=== PATIENT | male | born 1965 | race African-American/Black ===

== ENCOUNTER 2019-11-27 19:41 | Inpatient (IN) | payer OTHER ==
[~2019-11-27] VITALS: Ht 182.9 cm; Wt 105.5 kg
[2019-11-27] MEDS ORDERED: PANTOPRAZOLE 40 MG/10 ML VIAL INJ IV STA (19:47)
[2019-11-27] MEDS ORDERED: SODIUM CHLORIDE 0.9% 1,000 ML IVB ONE (19:47)
[2019-11-27] MEDS ORDERED: KETOROLAC TROMETH 15 mg/ml 1ML VL IV ONE (20:00)
[2019-11-27] MEDS ORDERED: ONDANSETRON HCL 4 MG/2 ML VIAL IV ONE (20:00)
[2019-11-27] MEDS ORDERED: MORPHINE SULFATE 10 MG/ML INJ 1ML SDV IV ONE (20:30)
[2019-11-27] MEDS ORDERED: LABETALOL HCL 5 MG/ML 4ML SYRINGE IV ONE ×2 (21:00→22:30)
[2019-11-27 21:15] LABS: Albumin 3.5 g/dL (3.4-5.0); Calcium 9.7 mg/dL (8.5-10.1)
[2019-11-27] MEDS ORDERED: ALUM & MAG HYDROX-SIMETH LIQ(MAALOX) 30 ML PO ONE (21:15)
[2019-11-27 21:18] LABS: Lactic Acid w/Reflex 3.4 mmol/L (0.4-2.0)
[2019-11-27 21:19] LABS: BUN/Creatinine Ratio 9.4; Bilirubin, Total 0.5 mg/dL (0.2-1.0); Total Protein 9.1 g/dL (6.4-8.2)
[2019-11-27 21:23] LABS: Potassium 2.5 mmol/L (3.5-5.1)
[2019-11-27] MEDS ORDERED: POTASSIUM CHL 20 Meq TABLET PO ONE (21:30)
[2019-11-27] MEDS ORDERED: HYDROmorphone HCL 2 MG/ML VL IV ONE (22:00)
[2019-11-27 22:05] LABS: Basophils # (auto) 0.1 10 ^3/uL (0-0.2); Hemoglobin 17.2 g/dL (13.5-17.5)
[2019-11-27 22:07] LABS: Basophils % (auto) 0.4 % (0.0-2.0); Eosinophils # (auto) 0 10 ^3/uL (0-0.8); Eosinophils % (auto) 0.2 % (0.0-7.0); Hematocrit 49.9 % (41.0-53.0); Lymphocytes % (auto) 4.7 % (10.0-50.0); Mean Corpuscular Hemoglobin 28.8 pg (28.0-32.0); Mean Corpuscular Hgb Conc. 34.5 g/dL (32.0-36.0); Mean Corpuscular Volume 83.4 fL (80.0-100.0); Monocytes # (auto) 1.4 10 ^3/uL (0-1.3); Neutrophils % (auto) 87.7 % (37.0-80.0); Nucleated Red Blood Cells % 0.1 %; Platelet Count (auto) 80 10^3/uL (140-450); Red Blood Cells 5.98 10^6/uL (4.5-5.90); Red Cell Distribution Width 19.3 % (11.8-14.3); White Blood Cell 20.5 10^3/uL (4.4-10.8)
[2019-11-27] MEDS ORDERED: SODIUM CHLORIDE 0.9% 2,000 ML IV ONE (22:15)
[2019-11-27] MEDS ORDERED: levoFLOXacin 500MG 100 ML IV ONE (22:15)
[2019-11-27] MEDS ORDERED: PANTOPRAZOLE 40 MG/10 ML VIAL INJ IV SCH (22:30)
[2019-11-27 22:36] LABS: Urine WBC None Seen /hpf (0 - 3)
[2019-11-27] MEDS ORDERED: cloNIDine HCL 0.1 MG TAB PO PRN (22:45)
[2019-11-27] MEDS ORDERED: NITROGLYCERIN 0.4 MG SL TAB SL PRN (22:45)
[2019-11-27] MEDS ORDERED: DOCUSATE SOD 100 MG CAP PO PRN (22:45)
[2019-11-27] MEDS ORDERED: ACETAMINOPHEN 325 MG TAB PO PRN (22:45)
[2019-11-27] MEDS ORDERED: HYDROcodone-ACET 5/325MG TAB PO PRN (22:45)
[2019-11-27] MEDS ORDERED: MORPHINE SULF INJ 2 MG/ML SYRINGE 1ML IV PRN (22:45)
[2019-11-27 22:55] LABS: Urine Bacteria NONE SEEN /hpf (None Seen); Urine Blood 3+ /uL (Negative)
[2019-11-27] MEDS: POTASSIUM CHL 20MEQ/100ML 100 ML IV SCH (22:56)
[2019-11-27 22:57] LABS: Urine Specific Gravity 1.015 (1.001-1.035)
[2019-11-27] MEDS ORDERED: cloNIDine HCL 0.1 MG TAB PO ONE (23:00)
[2019-11-27 23:01] LABS: Amphetamine Screen, Urine NEGATIVE (NEGATIVE); Barbiturate Scree,Urine NEGATIVE (NEGATIVE); Benzodiazephine Screen, Urine NEGATIVE (NEGATIVE); Cannabinoid Screen, Urine NEGATIVE (NEGATIVE); Cocaine Screen, Urine NEGATIVE (NEGATIVE); Opiate Scree,Urine NEGATIVE (NEGATIVE); Phencyclidine Screen, Urine NEGATIVE (NEGATIVE)
[2019-11-27] MEDS: METOPROLOL TARTRATE 50 MG TAB PO SCH (23:20)
[2019-11-27] MEDS: MORPHINE SULFATE 4 MG/ML SYR/VIAL IV PRN (23:39)
[2019-11-27] MEDS: ONDANSETRON HCL 4 MG/2 ML VIAL IV PRN (23:39)
[2019-11-28] MEDS: SODIUM CHLORIDE 0.9% 1,000 ML IV SCH ×3 (00:05→22:00)
[2019-11-28] MEDS: POTASSIUM CHL 20MEQ/100ML 100 ML IV SCH (00:26)
[2019-11-28] MEDS: MORPHINE SULFATE 4 MG/ML SYR/VIAL IV PRN (04:35)
[2019-11-28] MEDS: ONDANSETRON HCL 4 MG/2 ML VIAL IV PRN (04:35)
[2019-11-28] MEDS ORDERED: cloNIDine HCL 0.1 MG TAB PO SCH ×2 (06:00)
[2019-11-28 06:19] LABS: Basophils # (auto) 0.1 10 ^3/uL (0-0.2); Basophils % (auto) 0.5 % (0.0-2.0); Eosinophils # (auto) 0 10 ^3/uL (0-0.8); Hemoglobin 14.9 g/dL (13.5-17.5); Lymphocytes # (auto) 0.8 10 ^3/uL (0.4-5.4); Lymphocytes % (auto) 6.1 % (10.0-50.0); Mean Corpuscular Hemoglobin 28.5 pg (28.0-32.0); Mean Corpuscular Hgb Conc. 33.9 g/dL (32.0-36.0); Mean Corpuscular Volume 84.2 fL (80.0-100.0); Monocytes # (auto) 0.9 10 ^3/uL (0-1.3); Monocytes % (auto) 6.9 % (0.0-12.0); Neutrophils # (auto) 10.8 10 ^3/uL (1.6-8.6); Neutrophils % (auto) 86.5 % (37.0-80.0); Platelet Count (auto) 43 10^3/uL (140-450); Red Blood Cells 5.23 10^6/uL (4.5-5.90); Red Cell Distribution Width 19.3 % (11.8-14.3); White Blood Cell 12.5 10^3/uL (4.4-10.8)
[2019-11-28 06:48] LABS: BUN/Creatinine Ratio 9.7; Calcium 8.2 mg/dL (8.5-10.1); Potassium 3.6 mmol/L (3.5-5.1)
[2019-11-28] MEDS ORDERED: MORPHINE SULF INJ 2 MG/ML SYRINGE 1ML IV PRN (07:00)
[2019-11-28] MEDS ORDERED: hydrALAZINE HCL 20 MG/ML VL IV PRN (09:15)
[2019-11-28] MEDS ORDERED: ASPirin 81 mg TAB PO SCH (10:00)
[2019-11-28] MEDS ORDERED: LISINOPRIL 20 MG TAB PO SCH ×2 (10:00)
[2019-11-28] MEDS: PANTOPRAZOLE 40 MG TAB PO SCH (10:07)
[2019-11-28] MEDS: METOPROLOL TARTRATE 50 MG TAB PO SCH ×2 (10:07→22:25)
[2019-11-28 12:12] LABS: Protein, Urine 399.5 mg/dL (0.0-11.9)
[2019-11-28 14:00] VITALS: BP_SYST 132; BP_SYST 146; BP_DIAS 64; BP_DIAS 92
[2019-11-28 14:01] VITALS: BP 146/92
--- NOTE | 2019-11-28 14:05 | NUR ---
Telemetry admit from ER IESHA SWIFT admitted to Telemetry unit after verbal report received from LIZET Sheffield, ER. Patient oriented to Karely Brock, primary RN, unit, room, bed, and unit policies regarding patient care and visiting hours. Patient is awake, alert and oriented X4. No signs or symptoms of shortness of breath, discomfort but complains of medial epigastric pain 3/10, verbalized this is tolerable. Tele# 40, sinus rhythm @ 84 bpm. IV X2, right antecubital and left hand, both 20 gauge, patent and saline locked. Plan of care discussed with patient, verbalized understanding. Bed locked, in lowest position, call light within reach, will continue to monitor Q 1 hour and PRN.
--- NOTE | 2019-11-28 14:05 | NUR ---
ROUNDS Dr Gonzales at bedside for rounds, new orders received and followed through. Patient updated on plan of care, verbalized understanding.
[2019-11-28] MEDS ORDERED: amLODIPine BESYLATE 5 MG TAB PO ONE (14:30)
[2019-11-28] MEDS ORDERED: NIFEdipine ER 30 MG TAB PO SCH ×2 (15:00)
[2019-11-28 17:00] VITALS: BP 137/89
--- NOTE | 2019-11-28 17:19 | NUR ---
CARDIO Call received from Dr Lopes, per Dr Lopes, patient's echocardiogram looks suspicious for "abdominal aortic dissection, recommend abdominal ultrasound or CT angiogram of the abdomen with run off into pelvis". Call placed to on-call hospitalist, awaiting return call.
--- NOTE | 2019-11-28 17:21 | NUR ---
Sim Lei Return call received from Sim Lei, informed of Dr Luna's recommendations and suspicions in Echocardiogram, verbalized understanding. New orders received for abdominal CT angio with run off into pelvis.
--- NOTE | 2019-11-28 17:31 | NUR ---
BUN/CREAT Call received from Lisa director of radiology, informed if pt's creatinine is greater than 1.4, they cannot perform CT angio per protocol. Informed Sim Lei, new order received for abdominal ultrasound. Orders followed through. Patient updated on plan of care, verbalized understanding.
[2019-11-28] MEDS ORDERED: ATORVASTATIN 20 MG TAB PO SCH (18:00)
--- NOTE | 2019-11-28 18:51 | NUR ---
Sim Lei at bedside educating patient of plan of care. All risks and benefits explained to patient, verbalized understanding.
--- NOTE | 2019-11-28 18:59 | NUR ---
ABDOMINAL US Sim Lei notified of Abdominal US results, verbalized understanding. Per Sim Lei, contact Dr. Bowen to inform of abdominal US results and possible need for CT Angiogram. Sim Lei wanting to know if Dr Bowen would recommend placing patient on a Sodium Bicarbonate GTT and Mucomyst. Awaiting return call. Will endorse to oncoming nurse.
--- NOTE | 2019-11-28 19:30 | NUR ---
Opening Shift Note Assumed care of patient, awake and alert. No S/S of distress/SOB. Patient reporting 3/10 mid-epigastric "pressure" with deep inspiration of breath, states that it "comes and goes" and is refusing medication at this time. Bed in lowest locked position, side rails up x2, call light within reach. Instructed on POC and to call for assist PRN, will continue to monitor for changes Q1hr and PRN.
--- NOTE | 2019-11-28 19:30 | NUR ---
Care endorsed to LIZET Eckert, night nurse.
[2019-11-28] MEDS ORDERED: IOHEXOL 350 MG/ML 100ML IJ ONE (19:47)
[2019-11-28 20:00] VITALS: BP 147/95
--- NOTE | 2019-11-28 20:00 | NUR ---
No order for saline noted after receiving contrast dye after Abdominal and Aorta CT. rn call center hospitalist paged, awaiting call back at this time.
--- NOTE | 2019-11-28 20:05 | NUR ---
Patient off unit to radiology accompanied by radiology staff. No s/s of distress.
--- NOTE | 2019-11-28 20:35 | NUR ---
Patient back on unit, accompanied by radiology staff. No s/s of distress, will continue care.
--- NOTE | 2019-11-28 20:46 | NUR ---
Spoke with Chet from [employer]. Per Chet, radiologist requesting to speak to ordering doctor for Abdominal CT. Chet made aware Esau Lei NP placed the order and that he was no longer available olivier, quality assurance monitor chassis hospitalist Dr. Gianni Ramirez MD now patient's primary MD until hospitalists are assigned in the morning. Information given to Chet regarding how to reach Dr. Ramirez, Chet verbalized understanding. Will continue to monitor patient. Addendum: 11/29/19 at 0201 by OSCAR HESTER RN RN ADDITION: Charge nurse Sanjana made aware of patient's status.
--- NOTE | 2019-11-28 21:35 | NUR ---
Spoke with Faheem Vickers. Per senior housekeeper, Dr. Ramirez contacted her stating patient needs cardiothoracic surgery and to transfer to higher level of care. This RN to call and clarify order for transfer. Will do so and continue to monitor patient.
--- NOTE | 2019-11-28 21:46 | NUR ---
call or contact centre team leader hospitalist paged regarding clarification of transfer order and for IV fluids to assist in clearing contrast dye from CT. Awaiting call back at this time.
--- NOTE | 2019-11-28 21:58 | NUR ---
Spoke with John from radiology. Per John, unable to do Chest CT ordered by Dr. Ashley SHARMA. Patient unable to tolerate more contrast dye at this time, due to patient's poor kidney function. Per John, must wait 48 hours before administering more dye. Will make MD aware and continue to monitor patient.
[2019-11-28 22:00] VITALS: BP 147/95
[2019-11-28] MEDS ORDERED: levoFLOXacin 500MG 100 ML IV SCH (22:00)
--- NOTE | 2019-11-28 22:00 | NUR ---
Received return phone call from operational test mechanic hospitalist Dr. Gianni Ramirez MD. made aware of inability to perform Chest CT for 48 hours, MD verbalized understanding. New order received for 0.9% Normal Saline at 60 ml/hr. Per MD, if blood pressure becomes elevated, ok to discontinue fluids. MD requesting for patient to transfer to "another hospital" for higher level of care. All orders read back and verified, will implement as ordered and continue to monitor.
[2019-11-28 22:18] LABS: BUN/Creatinine Ratio 9.4; Calcium 8.1 mg/dL (8.5-10.1); Potassium 3.4 mmol/L (3.5-5.1)
[2019-11-28] MEDS: ATORVASTATIN 20 MG TAB PO SCH (22:24)
--- NOTE | 2019-11-28 23:23 | NUR ---
bilingual secretary Suzan spoke with Sarahy from the transfer center at [facility] ( ), [facility] requesting authorization codes from insurance. Will contact [employer] for authorization codes and continue to monitor.
[2019-11-29] VITALS (8 sets, daily range): BP systolic 131–166; BP diastolic 89–108
--- NOTE | 2019-11-29 01:44 | NUR ---
Working with Juan Boyer from [employer] to obtain authorization to transfer patient. Information faxed to [employer]. Fax number [phone], phone number [phone]. Faculty Research Assistant Suzan contacting hospitals for transfer. [facility] unable to accept patient, only accepting [place] and stroke patients at this time. [facility] unable to accept patient, their thoracic surgeon said he "needs tertiary care" and refused the case. [facility] waiting on authorization number from [employer] to see whether they can accept patient. Will continue care. Addendum: 11/29/19 at 0821 by OSCAR HESTER RN RN ADDITION: secretary administrative assistant Jaide and Olegario from assisting with transfer.
[2019-11-29] MEDS: hydrALAZINE HCL 20 MG/ML VL IV PRN ×4 (02:08→23:21)
--- NOTE | 2019-11-29 02:33 | NUR ---
Spoke with Albertina at the transfer center for [facility]. Albertina made aware Carole from [employer] gave verbal authorization. Per Albertina, hospital will need results of Chest CT to stage dissection. Per Albertina, Dr. Ramirez spoke with them and said he would have CT done in AM and have dayshift hospitalist call hospital with the results. Albertina also stated they would be able to provide an accepting doctor after authorization provided.
--- NOTE | 2019-11-29 03:40 | NUR ---
Per community health program coordinator Suzan, [facility] unable to accept patient, they do not do cardiothoracic surgery. Addendum: 11/29/19 at 0442 by OSCAR HESTER RN RN ADDITION: Also per Suzan, [facility] unable to accept patient, no beds.
--- NOTE | 2019-11-29 03:43 | NUR ---
Authorization from Carole with [employer] Insurance: Authorization for [facility]: [id number] Authorization for Hospital to Hospital Transfer: [id number] Addendum: 11/29/19 at 0444 by OSCAR HESTER RN RN ADDITION: Carole recommended trying to contact the following hospitals in network for patient: [facility], [facility], [place], [facility], [facility]. Carole made aware [facility], and [facility] have already refused patient and rationales for each.
--- NOTE | 2019-11-29 05:44 | NUR ---
Per post anesthesia care unit nurse Suzan, [facility] will potentially accept patient pending Chest CT results.
--- NOTE | 2019-11-29 07:30 | NUR ---
Spoke with Carole from [employer], updated on status of transfer. [employer] aware [facility] potentially willing to accept patient pending results of Chest CT.
--- NOTE | 2019-11-29 07:31 | NUR ---
Spoke with Dr. Gianni Ramirez MD, confirmed order for Chest CT angio and transfer to higher level of care. Will implement as ordered and continue to monitor.
--- NOTE | 2019-11-29 07:35 | NUR ---
Closing Note Patient lying in bed, eyes closed, respirations even and unlabored, appears asleep. Patient refusing pain medications and hot packs at this time. No s/s of distress. [facility] Karely [facility] RN. Addendum: 11/29/19 at 0819 by OSCAR HESTER RN RN CORRECTION: Patient refusing pain medications and hot packs throughout shift.
[2019-11-29 07:49] LABS: Basophils # (auto) 0 10 ^3/uL (0-0.2); Eosinophils # (auto) 0 10 ^3/uL (0-0.8); Eosinophils % (auto) 0.4 % (0.0-7.0); Hemoglobin 13.8 g/dL (13.5-17.5); Lymphocytes # (auto) 0.9 10 ^3/uL (0.4-5.4); Lymphocytes % (auto) 7.8 % (10.0-50.0); Monocytes # (auto) 1.2 10 ^3/uL (0-1.3)
[2019-11-29 07:50] LABS: Basophils % (auto) 0.3 % (0.0-2.0); Hematocrit 41.3 % (41.0-53.0); Mean Corpuscular Hemoglobin 28.7 pg (28.0-32.0); Mean Corpuscular Hgb Conc. 33.5 g/dL (32.0-36.0); Mean Corpuscular Volume 85.6 fL (80.0-100.0); Monocytes % (auto) 10.1 % (0.0-12.0); Neutrophils # (auto) 9.4 10 ^3/uL (1.6-8.6); Neutrophils % (auto) 81.4 % (37.0-80.0); Nucleated Red Blood Cells % 0.2 %; Platelet Count (auto) 39 10^3/uL (140-450); Red Blood Cells 4.82 10^6/uL (4.5-5.90); Red Cell Distribution Width 19.6 % (11.8-14.3); White Blood Cell 11.5 10^3/uL (4.4-10.8)
--- NOTE | 2019-11-29 08:00 | NUR ---
Opening Shift Note Assumed care of patient, awake, alert and oriented X4. No S/S of distress/SOB, complains of upper, medial abdominal "pressure like" pain, 3/10, per patient only when he takes a inspiratory breath, verbalized this is "tolerable" for him. Tele# 40, sinus tachycardia @ 104 bpm. IV X2 to right antecubital 20 gauge and left hand, 20 gauge, both patent, 0.9% NS @ 60 to left antecubital. Instructed on POC and to call for assist PRN, verbalized understanding. Bed locked, in lowest position, call light within reach, will continue to monitor for changes Q1hr and PRN.
[2019-11-29 08:02] LABS: BUN/Creatinine Ratio 9.3; Calcium 8.2 mg/dL (8.5-10.1); Potassium 3.3 mmol/L (3.5-5.1)
[2019-11-29 08:09] LABS: INR 1.21 (0.9-1.15)
[2019-11-29] MEDS ORDERED: amLODIPine BESYLATE 5 MG TAB PO SCH (10:00)
[2019-11-29] MEDS: METOPROLOL TARTRATE 50 MG TAB PO SCH ×2 (10:29→22:27)
[2019-11-29] MEDS: PANTOPRAZOLE 40 MG TAB PO SCH (10:30)
[2019-11-29] MEDS ORDERED: POTASSIUM CHLORIDE 8 MEQ TAB PO ONE (11:15)
[2019-11-29] MEDS ORDERED: HEPARIN 1,000 UNITS/ml 1ML VIAL ONE (11:23)
--- NOTE | 2019-11-29 11:50 | NUR ---
ROUNDS Dr Gonzales at bedside for rounds, new orders received and followed through. Patient updated on plan of care, verbalized understanding.
[2019-11-29] MEDS ORDERED: IOHEXOL 350 MG/ML 100ML IJ ONE (11:51)
[2019-11-29] MEDS ORDERED: SODIUM CHL 0.9% 1000 ML BAG XX ONE (12:00)
--- NOTE | 2019-11-29 12:05 | NUR ---
BEDSIDE DIALYSIS CATHETER PLACEMENT Dr Myers at bedside placing Neil Dialysis catheter. Patient tolerated procedure without difficulty. Neil dialysis catheter placed to right subclavian. Both ports with 2.5 ml of Heparin indwelling.
--- NOTE | 2019-11-29 12:10 | NUR ---
Nephrology Dr Perez at bedside for Nephrology follow up. New order received for Hemodialysis. Patient updated on plan of care, verbalized understanding.
--- NOTE | 2019-11-29 12:15 | NUR ---
[facility] Call received from Lizzy, Transfer Center [employer]. Verbalized they are waiting Chest CT results to make a decision on transfer. Informed patient to have Chest CT today. Requesting to be called at [phone] results.
--- NOTE | 2019-11-29 14:11 | NUR ---
[facility] Call placed to Tammie in the transfer center with [facility], informed of Chest CT results, verbalized she needs Dr Gonzales to call and speak to their Thoracic Surgeon at . Call placed to Dr Gonzales, informed of the above, verbalized understanding.
--- NOTE | 2019-11-29 14:25 | NUR ---
HEMODIALYSIS Hemodialysis nurse at bedside to start Hemodialysis.
--- NOTE | 2019-11-29 14:50 | NUR ---
[facility] Dr Gonzales spoke to [facility] center with [facility], all requested information provided. Dr Gonzales spoke to the Thoracic Surgeon via phone. Per Dr Gonzales, the Thoracic Surgeon is requesting to speak to the radiologists whom read the CT Angio of abdomen and CT Chest. Will notify radiology to attempt to get this information.
[2019-11-29] MEDS: SODIUM CHLORIDE 0.9% 1,000 ML IV SCH (14:52)
--- NOTE | 2019-11-29 15:32 | NUR ---
[facility] Call placed to [facility], spoke to Ciro in the transfer center, provided him with the following information: CT Angio of Abdomen read by Dr Grossman with [facility] (on-line) CT Angio of Chest read by Arturo Angulo
--- NOTE | 2019-11-29 18:15 | NUR ---
HEMODIALYSIS Hemodialysis completed, 1 Liter removed. B/P 173/96. Call placed to Sim Lei to notify of, awaiting return call.
--- NOTE | 2019-11-29 18:20 | NUR ---
Return call received from Sim Lei, updated on reason for call. New orders received and followed through.
[2019-11-29] MEDS: LABETALOL HCL 5 MG/ML 4ML SYRINGE IV PRN ×2 (18:27→18:59)
--- NOTE | 2019-11-29 18:27 | NUR ---
B/P 175/96 HR 112 IVP Labetalol 10 mg administered, will recheck B/P in 15 minutes.
--- NOTE | 2019-11-29 18:42 | NUR ---
Repeat B/P 155/84 HR 113 Will repeat PRN Labetalol 10mg IVP
--- NOTE | 2019-11-29 18:59 | NUR ---
Labetalol 10 mg IVP administered, will endorse to repeat B/P in 15 minutes.
--- NOTE | 2019-11-29 19:10 | NUR ---
Care endorsed to LIZET Eckert, night nurse.
--- NOTE | 2019-11-29 19:17 | NUR ---
Opening Shift Note Assumed care of patient, eyes closed, respirations even and unlabored, appears asleep. No S/S of distress/SOB or pain. Bed in lowest locked position, side rails up x2, call light within reach. Instructed on POC and to call for assist PRN, will continue to monitor for changes Q1hr and PRN.
--- NOTE | 2019-11-29 19:17 | NUR ---
Repeat B/P 118/85 HR 111
[2019-11-29] MEDS ORDERED: cefTRIAXone 1GM/50ML D5W 50 ML IV ONE (19:30)
--- NOTE | 2019-11-29 19:41 | NUR ---
Received call from hospitalist Esau Lei NP. [facility] has been in touch with [facility]. [employer] willing to accept patient, accepting doctor Dr. Shelton. Per EDGE SAWYER, waiting on bed, [facility] will call when bed available.
--- NOTE | 2019-11-29 21:20 | NUR ---
Received phone call from Albertina at [employer]. Patient has been accepted at [facility] with Dr. Shelton, room 458-A. Phone number for report, .
--- NOTE | 2019-11-29 21:26 | NUR ---
Dr. Mariano Barrett at bedside, updated on patient's plan of care.
--- NOTE | 2019-11-29 21:30 | NUR ---
Patient's temp noted to be 99.8. Patient denies chills and s/s of fever. Blankets removed, cool wash cloth applied, and temperature of the room decreased. Will continue to monitor.
[2019-11-29] MEDS: ATORVASTATIN 20 MG TAB PO SCH (22:26)
--- NOTE | 2019-11-29 23:02 | NUR ---
ME[facility] contacted for [facility] transport, spoke with Daisy ([phone]). ETA for hand picker 30-40 minutes. Will continue care.
--- NOTE | 2019-11-29 23:16 | NUR ---
Patient's blood pressure 150/89 with 108 heart rate after 22:00 Metoprolol administration. Will administer Hydralazine as ordered and continue to monitor.
--- NOTE | 2019-11-29 23:43 | NUR ---
Report called to Galilea HINDS at [facility], SBAR given, all questions and concerns addressed. Call back number provided.
--- NOTE | 2019-11-30 00:30 | NUR ---
Transfer to [facility] Discharge instructions given as ordered. Encourage to follow up with accepting doctor Dr. Shelton as instructed. All questions and concerns addressed with patient and [facility] staff. Patient verbalized understanding. Medication reconciliation form completed and copy given to [facility] with copy of chart and all transfer paperwork. IVs to left hand and right AC both still in place, both asymptomatic, patent and intact. Telemetry unit returned to ICU by JULIANO Avendano, monitor technicians made aware. Patient taken to [facility] transport with all personal belongings, accompanied by [facility] staff. No distress noted at time of departure.
[2019-11-30] MEDS ORDERED: cefTRIAXone 1GM/50ML D5W 50 ML IV SCH (09:00)
[2019-11-30 10:04] LABS: Hepatitis B Surface Antibody Negative
--- NOTE | 2019-11-30 10:47 | NUR ---
No pages or calls regarding this SS consult. Transfer order completed by nursing staff.
[2019-11-30 11:35] LABS: Hepatitis B Surface Antigen Negative (Negative)
== END 2019-11-30 00:30 | disposition short-term general hospital (02) | DRG 720 ==
LOC: EDBD 19:41 → ER 19:41 → TELE-CENTR 19:42 → UNDOADMIN 19:42 → TELE 19:42 → TELE-CENTR 11-28 13:57
PROVIDERS: ADMIT Hospitalist; ATTEND Hospitalist
PROC: 5A1D70Z Performance of Urinary Filtration, Intermittent, Less than 6 Hours Per Day (ICD-10-PCS; principal; 2019-11-29)
PROC: 05HM33Z Insertion of Infusion Device into Right Internal Jugular Vein, Percutaneous Approach (ICD-10-PCS; 2019-11-29)
DX: A41.9 Sepsis, unspecified organism (principal); I21.4 Non-ST elevation (NSTEMI) myocardial infarction; I71.01 Dissection of thoracic aorta; N17.0 Acute kidney failure with tubular necrosis; K85.90 Acute pancreatitis without necrosis or infection, unspecified; D69.6 Thrombocytopenia, unspecified; E87.1 Hypo-osmolality and hyponatremia; E86.1 Hypovolemia; E87.6 Hypokalemia; F17.210 Nicotine dependence, cigarettes, uncomplicated; I12.9 Hypertensive chronic kidney disease with stage 1 through stage 4 chronic kidney disease, or unspecified chronic kidney disease; I16.1 Hypertensive emergency; I71.4 Abdominal aortic aneurysm, without rupture; K52.9 Noninfective gastroenteritis and colitis, unspecified; K57.90 Diverticulosis of intestine, part unspecified, without perforation or abscess without bleeding; N18.9 Chronic kidney disease, unspecified; N39.0 Urinary tract infection, site not specified; K21.9 Gastro-esophageal reflux disease without esophagitis; R31.9 Hematuria, unspecified; Z91.19 Patient's noncompliance with other medical treatment and regimen; Z88.0 Allergy status to penicillin; Z91.14 Patient's other noncompliance with medication regimen; Z79.899 Other long term (current) drug therapy
CPT/HCPCS: 36415; 70450; 71045; 71275; 74176; 76775; 80048; 80053; 80061; 80307; 80320; 81001; 82088; 82150; 82384; 82550; 82570; 83010; 83036; 83605; 83615; 83690; 84156; 84244; 84300; 84443; 84484; 85025; 85610; 86706; 87040; 87086; 87340; 90935; 93005; 93306; 96361; 96365; 96375; 99291; C9113; G0378; J1642; J1956; J2405; J3480; J3490

== ENCOUNTER 2020-02-13 09:18 | Emergency (ER) | payer OTHER ==
[2020-02-13 10:09] LABS: Basophils # (auto) 0.1 10 ^3/uL (0-0.2); Basophils % (auto) 1.5 % (0.0-2.0); Eosinophils # (auto) 0.1 10 ^3/uL (0-0.8); Eosinophils % (auto) 1.6 % (0.0-7.0); Hematocrit 32.1 % (41.0-53.0); Hemoglobin 10.7 g/dL (13.5-17.5); Lymphocytes # (auto) 0.6 10 ^3/uL (0.4-5.4); Lymphocytes % (auto) 13.9 % (10.0-50.0); Mean Corpuscular Hemoglobin 29.4 pg (28.0-32.0); Mean Corpuscular Hgb Conc. 33.3 g/dL (32.0-36.0); Mean Corpuscular Volume 88.5 fL (80.0-100.0); Monocytes # (auto) 0.5 10 ^3/uL (0-1.3); Monocytes % (auto) 10.4 % (0.0-12.0); Neutrophils # (auto) 3.2 10 ^3/uL (1.6-8.6); Neutrophils % (auto) 72.6 % (37.0-80.0); Nucleated Red Blood Cells % 0.1 %; Platelet Count (auto) 176 10^3/uL (140-450); Red Blood Cells 3.63 10^6/uL (4.5-5.90); Red Cell Distribution Width 16.1 % (11.8-14.3); White Blood Cell 4.5 10^3/uL (4.4-10.8)
[2020-02-13] MEDS ORDERED: SODIUM CHLORIDE 0.9% 500 ML IV ONE (10:15)
[2020-02-13 10:21] LABS: Albumin 3.1 g/dL (3.4-5.0); Potassium 3.2 mmol/L (3.5-5.1)
[2020-02-13 10:25] LABS: BUN/Creatinine Ratio 2.8; Bilirubin, Total 0.7 mg/dL (0.2-1.0)
[2020-02-13 12:07] VITALS: BP 96/58
[2020-02-13] MEDS ORDERED: POTASSIUM EFFERVESENT TAB 25 MEQ PO ONE (12:30)
== END 2020-02-13 12:56 | disposition home or self-care (01) ==
LOC: ER 09:18 → EDBD 09:18 → ER 12:56
DX: S01.81XA Laceration without foreign body of other part of head, initial encounter (principal); S01.112A Laceration without foreign body of left eyelid and periocular area, initial encounter; I95.1 Orthostatic hypotension; K21.9 Gastro-esophageal reflux disease without esophagitis; I10 Essential (primary) hypertension; E87.6 Hypokalemia; I12.0 Hypertensive chronic kidney disease with stage 5 chronic kidney disease or end stage renal disease; N18.6 End stage renal disease; D63.1 Anemia in chronic kidney disease; Z87.891 Personal history of nicotine dependence; X58.XXXA Exposure to other specified factors, initial encounter; Y93.89 Activity, other specified; Y92.89 Other specified places as the place of occurrence of the external cause; Y99.8 Other external cause status
CPT/HCPCS: 36415; 80053; 85025; 93005; 96360; 96361; 99284; J7040

== ENCOUNTER 2022-04-13 07:36 | Emergency (ER) | payer OTHER ==
[~2022-04-13] VITALS: Ht 182.9 cm; Wt 90.0 kg
[2022-04-13 09:00] LABS: Basophils # (auto) 0.1 10 ^3/uL (0-0.2); Basophils % (auto) 1.1 % (0.0-2.0); Eosinophils # (auto) 0.1 10 ^3/uL (0-0.8); Eosinophils % (auto) 2.5 % (0.0-7.0); Hematocrit 43.7 % (41.0-53.0); Hemoglobin 14.3 g/dL (13.5-17.5); Lymphocytes % (auto) 21.3 % (10.0-50.0); Mean Corpuscular Hemoglobin 28.6 pg (28.0-32.0); Mean Corpuscular Hgb Conc. 32.6 g/dL (32.0-36.0); Mean Corpuscular Volume 87.7 fL (80.0-100.0); Monocytes # (auto) 0.5 10 ^3/uL (0-1.3); Monocytes % (auto) 9.9 % (0.0-12.0); Neutrophils # (auto) 3.1 10 ^3/uL (1.6-8.6); Neutrophils % (auto) 65.2 % (37.0-80.0); Red Blood Cells 4.99 10^6/uL (4.5-5.90); Red Cell Distribution Width 15.5 % (11.8-14.3); White Blood Cell 4.7 10^3/uL (4.4-10.8)
[2022-04-13 09:01] LABS: Albumin 3.4 g/dL (3.4-5.0); Calcium 9.7 mg/dL (8.5-10.1); Magnesium 2.3 mg/dL (1.6-2.6); Potassium 4.2 mmol/L (3.5-5.1)
[2022-04-13 09:05] LABS: Bilirubin, Total 0.3 mg/dL (0.2-1.0); Total Protein 7.8 g/dL (6.4-8.2)
[2022-04-13] MEDS ORDERED: IOHEXOL 350 MG/ML 100ML IJ ONE ×2 (10:52→15:16)
[2022-04-13] MEDS ORDERED: ESMOLOL HCL (10MG/ML) 10 ML VIAL IV ONE (15:45)
[2022-04-13] MEDS ORDERED: ESMOLOL HCL-NS 10MG/ML 250 ML IV SCH (15:45)
[2022-04-13] MEDS ORDERED: LABETALOL HCL 5 MG/ML 4ML SYRINGE IV ONE ×4 (16:00→16:45)
[2022-04-13] MEDS: ESMOLOL HCL-NS 10MG/ML 250 ML IV SCH ×2 (16:23→17:16)
[2022-04-13 17:16] VITALS: BP 151/76
== END 2022-04-13 17:27 | disposition short-term general hospital (02) ==
LOC: EDBD 07:36 → ER 07:36
DX: I71.01 Dissection of thoracic aorta (principal); I12.9 Hypertensive chronic kidney disease with stage 1 through stage 4 chronic kidney disease, or unspecified chronic kidney disease; N18.9 Chronic kidney disease, unspecified; K21.9 Gastro-esophageal reflux disease without esophagitis; Z87.891 Personal history of nicotine dependence; Z88.0 Allergy status to penicillin; Z20.822 Contact with and (suspected) exposure to COVID-19
CPT/HCPCS: 36415; 71275; 80053; 83735; 83880; 84484; 85025; 86850; 86900; 86901; 87426; 93005; 96365; 96366; 96368; 96375; 96376; 99285; J3490; Q9967

== ENCOUNTER 2025-05-05 04:49 | Emergency (ER) | payer OTHER ==
[~2025-05-05] VITALS: Ht 190.5 cm; Wt 81.7 kg
[2025-05-05 04:50] VITALS: BP 190/114; RESP 18; TEMP 98.5; O2SAT 95
--- NOTE | 2025-05-05 05:46 | ECG ---
[facility] Test Date: 2025-05-05 Test Time: 05:04:45 Pat Name: IESHA SWIFT Department: [facility] ED Patient ID: [id number] Room: Gender: Double End Sewer: SABINA : 1965 Requested By: EMERGENCY EMERGENCY Order Number: [id number] Reading MD: Kwasi Padilla Measurements Intervals [place] Rate: 75 P: 67 TX: 182 QRS: 44 QRSD: 92 T: 90 QT: 465 QTc: 520 Interpretive Statements Sinus rhythm LAE, consider biatrial enlargement Nonspecific T abnormalities, lateral leads Prolonged QT interval Electronically Signed On 05-05-2025 17:01:20 PDT by Kwasi Padilla Please click the below link to view image of tracing.
[2025-05-05 06:48] VITALS: PULSE 75
--- NOTE | 2025-05-05 06:48 | ED.PDOC ---
History of Present Illness HPI Comments 59-year-old male, with a history of ESRD with HD on and HTN, presents with chief complaint of hypertension, with the associated dizziness. Patient reports on checking and noticing his blood pressure being elevated, this morning, after being awoken to sudden dizziness, that he describes as a room-spinning sensation. Patient states on taking Hydralazine, Metoprolol, and Nifedipine for managing his blood pressure levels and having no recent changes to said medications and taking them and having no changes to his symptoms prior to arrival. Last HD was yesterday, with no complications. No further pertinent events or history endorsed. Denial of any chest pain, shortness of breath, vi susan or speech changes, or further associated symptoms. Chief Complaint: High Blood Pressure Time Seen by MD: 06:30 Primary Care Provider: ANTONI Reviewed Notes: Nurses Notes, Medications, Allergies Allergies: Coded Allergies: Penicillin G (Verified Allergy, Unknown, 11/27/19) Home Meds No Active Prescriptions or Reported Meds Information Source: Patient Mode of Arrival: Ambulatory Severity: Moderate Timing: Hours Duration: Since onset Prehospital treatment: None Past Medical History PAST MEDICAL HISTORY: CKF, ESRD (With hemodialysis on Saturday, , and Saturday), GERD, HTN Surgical History: Denies all surgeries Family History Family History: Reviewed,noncontributory to illness Social History Smoker: Non-Smoker, Quit Less Than 1 Year Alcohol: Occasionally Drugs: Marijuana Lives In: Home All Other Systems: Reviewed and Negative (Comprehensive review of systems are negative unless otherwise stated in HPI) Physical Exam General Appearance: Moderate Distress HEENT: Normal ENT Inspection, Pharynx Normal, TMs Normal Neck: Full Range of Motion, Non-Tender, Normal, Normal Inspection Respiratory: Chest Non-Tender, Lungs Clear, No Accessory Muscle Use, No Respiratory Distress, Normal Breath Sounds Cardiovascular: No Edema, No JVD, No Murmur, No Gallop, Normal Peripheral Pulses, Regular Rate/Rhythm Breast Exam: Deferred Gastrointestinal: No Organomegaly, Non Tender, No Pulsatile Mass, Normal Bowel Sounds, Soft Genitalia: Deferred Pelvic: Deferred Rectal: Deferred Extremities: No calf tenderness, Normal capillary refill, Normal inspection, Normal range of motion, Non-tender, No pedal edema Musculoskeletal : Apperance: Normal Neurologic: Alert, clinic business manager II-XII nml as Tested, No Motor Deficits, Normal Affect, Normal Mood, No Sensory Deficits Cerebellar Function: Normal Reflexes: Normal Skin: Dry, Normal Color, Warm Peripheral Pulses: 3+ Radial (R), 3+ Radial (L) Lymphatic: No Adenopathy Was a procedure done? Was a procedure done?: No EKG EKG : Pulse Rate (adult): 75 Allen: Normal Cardiac Rhythm: NSR Block: None Hypertrophy: None ST: Normal Differential Dx Considerations may include: Differential diagnoses considered include but are not limited to cardiac structural disease, arrhythmia, acute coronary syndrome, orthostasis, pulmonary embolism, dissection, seizure, basilar stroke, acute vertigo, electrolyte imbalance, dehydration, and improper medication dosage, other. X-Ray, Labs, Meds, VS Vital Signs Date Time Temp Pulse Resp B/P (MAP) Pulse Ox O2 Delivery O2 Flow Rate FiO2 05/05/25 06:48 75 05/05/25 05:04 75 05/05/25 04:50 98.5 71 18 190/114 95 98.5 Patient alert. Came in because of high blood pressure. Was dialyzed yesterday. Saturation pristine. Was given clonidine. Reviewed his history. Explained to the patient. Continue monitoring. Time of 1ST Reevaluation: 07:00 Reevaluation 1ST: Unchanged Patient Education/Counseling: Treatment, Need For Follow Up Family Education/Counseling: No Family Present SEPSIS Sepsis Screen Date sepsis recognized/suspect: May 05, 2025 Time Sepsis recognized/suspect: 449 Recent Procedure: No On Antibiotic Therapy: No Respiratory Rate >20: No Heart Rate >90: No Temp<36 C (96.8 F) or >38.3 C: No SBP <90 or MAP <65 mmHG: No New Acute Mental Status Change: No Is the patient on CPAP, BIPAP,: No Physician Orders Troponin-I Hs (05/05/25 06:40) Complete Blood Count (05/05/25 06:40) Basic Metabolic Panel (05/05/25 06:40) Vital Signs Date Time Temp Pulse Resp B/P (MAP) Pulse Ox O2 Delivery O2 Flow Rate FiO2 05/05/25 06:48 75 05/05/25 05:04 75 05/05/25 04:50 98.5 71 18 190/114 95 98.5 Departure 1 Departure Time of Disposition: 06:59 Impression: Primary Impression: Hypertensive emergency Disposition: 09 ADMITTED INPATIENT Admit to: Med Surg Condition: Guarded e-Prescriptions No Active Prescriptions or Reported Meds Critical Care Note Critical Care Time?: Yes (90 min-critical care time only) Stability Stability form required: No Heart Score Heart Score: Heart Score Response (Comments) Value History N/A 0 EKG N/A 0 Age N/A 0 Risk Factors N/A 0 Troponin N/A 0 Total 0 I personally scribed for JESUS MTZ MD ([email or web address]) on 05/05/25 at 06:48. Electronically submitted by Andi Luciano ([email or web address]). JESUS MTZ MD May 05, 2025 06:48
[2025-05-05 07:22] LABS: Hematocrit 42.7 % (41.0-53.0); Hemoglobin 14.3 g/dL (13.5-17.5); Mean Corpuscular Hemoglobin 29.6 pg (28.0-32.0); Mean Corpuscular Volume 88.6 fL (80.0-100.0); Nucleated Red Blood Cells % 0.1 %
[2025-05-05 07:31] LABS: Anion Gap 11 (5-15); Carbon Dioxide 29 mmol/L (20-31); Chloride 99 mmol/L (98-107); Potassium 4.6 mmol/L (3.5-5.1); Sodium 139 mmol/L (136-145)
[2025-05-05 07:32] LABS: Calcium 8.8 mg/dL (8.7-10.4)
[2025-05-05 07:37] LABS: BUN/Creatinine Ratio 2.6 (10.0-20.0); Blood Urea Nitrogen 23 mg/dL (9-23); Glucose 78 mg/dL (74-106)
== END 2025-05-05 09:17 | disposition left against medical advice (07) ==
LOC: ER 04:49
DX: I16.1 Hypertensive emergency (principal); I12.0 Hypertensive chronic kidney disease with stage 5 chronic kidney disease or end stage renal disease; N18.6 End stage renal disease; Z88.0 Allergy status to penicillin; Z99.2 Dependence on renal dialysis; Z79.899 Other long term (current) drug therapy
CPT/HCPCS: 36415; 80048; 84484; 85025; 93005